=== PATIENT | female | born 1975 | race Caucasian/White ===

== ENCOUNTER 2024-09-06 23:41 | Emergency (ER) | payer SELFPAY ==
[~2024-09-06] VITALS: Ht 180.3 cm; Wt 170.0 kg
[2024-09-07 00:11] VITALS: BP 161/85
[2024-09-07 00:16] VITALS: BP 170/91
[2024-09-07] MEDS ORDERED: ceFAZolin Sodium 1 GM in SODIUM CHLORIDE 0.9% 50 ML IV ONE (00:20)
[2024-09-07] MEDS ORDERED: Diph, Acellular Pertussis, Tet 0.5 ML/VIAL (Tdap) SDV IM ONE (00:20)
[2024-09-07] MEDS ORDERED: KEFLEX500 MG PO (00:22)
[2024-09-07 01:04] VITALS: BP 170/91
--- NOTE | 2024-09-10 11:28 | NUR ---
TRIED TO CONTACT PT ON 09/10/24 CONCERNING WOUND CULTURE RESULTS AND ANTIBIOTICS. UNABLE TO LEAVE VM DUE TO VOICE MAIL NOT BEING SET UP. WILL TRY AGAIN ON 09/11/24. IF STILL UNABLE TO REACH SEND CERTIFIED LETTER.
--- NOTE | 2024-09-11 13:47 | NUR ---
Unable to reach pt on 09/11/24, Try again on 09/12/24. If no response send certified letter.
[2024-09-12] MEDS ORDERED: BACTRIM DS1 TAB PO (15:38)
== END 2024-09-07 01:04 | disposition home or self-care (01) | DRG 603 ==
LOC: ED 23:41
DX: L03.021 Acute lymphangitis of right finger (principal)
CPT/HCPCS: 90715; J0690